=== PATIENT | male | born 1985 | race Caucasian/White ===

== ENCOUNTER 2016-12-29 17:07 | Emergency (ER) | payer BC, OTHER ==
--- NOTE | 2017-01-10 08:39 | ER ---
ADMIT: 12/29/2016 RM/LOC: ER [facility] MR#: [id number] [facility] [id number] [place] [address] [place] [address] Emergency Room Report SEX: M AGE: 31 : 1985 DATE: 12/29/2016 A 31-year-old was moving a heavy object today, when he experienced back pain. See T-sheet for history and physical. The patient was diagnosed with back pain, given prescription for [place], Flexeril. Encouraged to use a heating pad. Follow up with his primary doctor later this week if he has not improved. Jerry Castro MD/ martell JOB #: [id number] CC: Kb Nguyen MD, Attending Physician Chapin Littlejohn MD, Family Physician
== END 2016-12-29 18:55 | disposition home or self-care (01) ==
LOC: ER 17:07
DX: M54.9 Dorsalgia, unspecified (principal)